=== PATIENT | male | born 1965 | race American Indian/Alaskan Native ===

== ENCOUNTER 2022-02-03 21:22 | Inpatient (IN) | payer OTHER ==
[~2022-02-03] VITALS: Ht 167.6 cm; Wt 80.0 kg
[2022-02-03 21:48] LABS: BASOPHILS ABSOLUTE AUTO 0.12 K/mm3 (0.00-0.23); BASOPHILS PERCENT AUTO 1 % (0-2); EOSINOPHILS PERCENT AUTO 2 % (0-6); Hematocrit 30.5 % (37.0-53.0); Hemoglobin 10.2 g/dL (13.5-17.5); IMMATURE GRAN ABSOLUTE AUTO 0.09 K/mm3 (0.00-0.10); IMMATURE GRAN PERCENT AUTO 1 % (0-1); LYMPHOCYTES ABSOLUTE AUTO 2.84 K/mm3 (0.84-5.20); LYMPHOCYTES PERCENT AUTO 27 % (21-46); MONOCYTES ABSOLUTE AUTO 1.49 K/mm3 (0.16-1.47); MONOCYTES PERCENT AUTO 14 % (4-13); Mean Corpuscular HGB 31.6 pg (26.0-34.0); Mean Corpuscular HGB Conc 33.4 g/dL (31.5-36.5); Mean Corpuscular Volume 94 fL (80-100); Mean Platelet Volume 9.9 fL (9.1-12.4); NEUTROPHILS ABSOLUTE AUTO 5.75 K/mm3 (1.96-9.15); NEUTROPHILS PERCENT AUTO 55 % (41-73); Platelet Count 129 K/mm3 (150-400); RDW Coefficient Variation 15.4 % (11.7-14.2); RDW Standard Deviation 52.9 fL (35.1-46.3); Red Blood Cell Count 3.23 M/mm3 (4.30-5.90); White Blood Cell Count 10.49 K/mm3 (4.00-11.30)
[2022-02-03 22:08] LABS: Alanine Aminotransfer (ALT/SGP 40 U/L (12-78); Albumin/Globulin Ratio 0.4 (0.8-1.8); Alk Phos 106 U/L (50-136); Anion Gap 9 mmol/L (6-16); Aspartate Aminotrans (AST/SGOT 54 U/L (12-37); Bilirubin, Total 2.2 mg/dL (0.1-1.0); Blood Urea Nitrogen 19 mg/dL (8-24); CO2, Blood 21 mmol/L (21-32); Calcium, Blood 8.2 mg/dL (8.5-10.1); Chloride, Blood 110 mmol/L (98-108); Creatinine, Blood 1.12 mg/dL (0.60-1.20); Globulin, Blood 4.5 g/dL (2.2-4.0); Glomerular Filtration Rate >60 (60-); Glucose, Blood 111 mg/dL (70-99); Potassium, Blood 3.5 mmol/L (3.5-5.5); Sodium, Blood 140 mmol/L (136-145); Total Protein, Blood 6.5 g/dL (6.4-8.2)
[2022-02-03 23:20] LABS: International Normalized Ratio 1.26
[2022-02-04] MEDS ORDERED: Norco 7.5-3251 EACH PO (00:10)
[2022-02-04] MEDS ORDERED: SILDENAFIL CIT100 MG PO (00:10)
[2022-02-04] MEDS ORDERED: LOSARTAN POTASS25 M2 PO (00:10)
[2022-02-04] MEDS ORDERED: ENBREL50 MG/1 M2 SC (00:10)
[2022-02-04] MEDS ORDERED: BENADRYL25 M1 PO (00:10)
[2022-02-04] MEDS ORDERED: KLOR-CON M1010 MEQ PO (00:10)
[2022-02-04] MEDS ORDERED: OTEZLA30 MG PO (00:10)
[2022-02-04] MEDS ORDERED: cholecalciferol (vit (00:11)
[2022-02-04] MEDS ORDERED: IBU800 M1 PO (00:11)
[2022-02-04] MEDS ORDERED: OMEP20ER PO (00:12)
[2022-02-04 00:34] LABS: Hematocrit 23.6 % (37.0-53.0); Hemoglobin 8.2 g/dL (13.5-17.5)
[2022-02-04 06:00] LABS: Hematocrit 24.6 % (37.0-53.0); Hemoglobin 8.1 g/dL (13.5-17.5)
[2022-02-04 06:19] LABS: Anion Gap 7 mmol/L (6-16); Blood Urea Nitrogen 17 mg/dL (8-24); Bun/Creatinine Ratio 16.5 (12.0-20.0); CO2, Blood 21 mmol/L (21-32); Calcium, Blood 7.4 mg/dL (8.5-10.1); Chloride, Blood 115 mmol/L (98-108); Creatinine, Blood 1.03 mg/dL (0.60-1.20); Glomerular Filtration Rate >60 (60-); Glucose, Blood 79 mg/dL (70-99); Potassium, Blood 3.2 mmol/L (3.5-5.5); Sodium, Blood 143 mmol/L (136-145)
--- NOTE | 2022-02-04 06:28 | NUR ---
SHIFT SUMMARY. PT RESTED IN BED SINCE ADMISSION. ALERT AND ORIENTED, ON ROOM AIR. IV ACCESS IN L AND R ARM. IV PUMPS RUNNING PROTONIX AT 10 ML/HR, NS AT 150 ML/HR. VS STABLE THROUGHOUT SHIFT, SEE ASSESSMENT FOR FURTHER DETAILS. WILL CONTINUE TO MONITOR AND REPORT OFF TO DAYSHIFT RN.
--- NOTE | 2022-02-04 07:30 | NUR ---
ASSUMED CARE: REPORT RECEIVED FROM UMAIR Saravia RN. ASSUMED CARE OF THIS PT AT APPROX 0700. ON ASSESSMENT, THE PT IS RESTING QUIETLY & AWAKENS EASILY TO VERBAL STIMULUS. HE IS ALERT/ ORIENTED TO ALL, DENIES PAIN, MAEW. COMPLETES CARE INDEPENDENTLY W/ SETUP ASSIST PRN. LS ARE CLEAR T/O, PT ON RA W/ O2 SATS > 95%. MONITOR SHOWS SR-ST W/ HR 90-100s, BP STABLE. THE PT IS CURRENTLY NPO, STS HAVING INTERMITTENT NAUSEA. NO BM OR FURTHER EMESIS SINCE ARRIVAL TO HOSPITAL. VOIDS URINE USING URINAL W/O DIFFICULTY. SKIN CONDITON OVERALL INTACT, SKIN SURFACE COVERED W/ PSORIASIS RASH THAT PT STS IS CHRONIC. PT REPOSITIONS HIMSELF IN BED FOR COMFORT. WILL CONTINUE TO MONITOR & UPDATE NEEDED.
[2022-02-04 08:06] LABS: Hemoglobin 8.4 g/dL (13.5-17.5)
--- NOTE | 2022-02-04 09:10 | NUR ---
DR LYNNE: PROVIDER AT BEDSIDE TO EVAL PT THIS AM. BECAUSE THERE IS NO GI COVERAGE HE WOULD LIKE TO HAVE AN ABDOMINAL ULTRASOUND COMPLETED FOR THIS PT TO CHECK FOR LIVER CIRRHOSIS. CONTINUE TO TREND SERIAL H&H LEVELS Q6H. VITAMIN K & KCL REPLETION ORDERED WELL.
--- NOTE | 2022-02-04 11:36 | NUR ---
Spiritual Care Responding to a Pt. SPiritual CAre request. Pt. is awake in Bed and welcomes my visit. Pt. is very pleasant. Faciliated a review of what brought him to hospital. Pt. is unsettled about the source of his bleeding, but is thankful that his kidneys are not the source of the problem. Pt. is a man of alexandra and displays evidence of hope. Pryaed with Pt. Pt. verbalized gratitude for the spiritual care visit.
[2022-02-04 12:35] LABS: Hematocrit 23.7 % (37.0-53.0)
--- NOTE | 2022-02-04 18:10 | NUR ---
SHIFT SUMMARY: NO ACUTE CHANGES SINCE PRIOR UPDATES. PT REMAINS A&O, PLEASANT & COOPERATIVE W/ CARE. HE HAS RESTED WELL AT TIMES DURING THIS SHIFT & IS CURRENTLY AWAKE, W/ HIS GIRLFRIEND, SARIAH, AT BEDSIDE. LS REMAIN CLEAR T/O, PT ON RA W/ O2 SATS > 95%. MONITOR SHOWS SR-ST, HR 90-110s, BP STABLE. THE PT HAS INTERMITTENT C/O NAUSEA THIS SHIFT BUT HAS DENIED NEED FOR ANTIEMETIC. HE IS TOLERATING PO INTAKE WELL W/ NO NOTABLE INCREASE TO NAUSEA. NO BM OR EPISODES OF EMESIS THIS SHIFT. VOIDS URINE W/O DIFFICULTY USING URINAL. SKIN CONDITION OVERALL INTACT, PSORIATIC RASH PRESENT T/O SKIN SURFACE. PT REPOSITIONS SELF W/O DIFFICULTY PRN FOR COMFORT. WILL CONTINUE TO MONITOR & REPORT OFF TO ONCOMING RN.
[2022-02-04 18:15] LABS: Hematocrit 22.8 % (37.0-53.0); Hemoglobin 7.6 g/dL (13.5-17.5)
--- NOTE | 2022-02-04 19:05 | NUR ---
ASSUMED CARE. REPORT RECEIVED FROM DANIEL OSHEA. PT RESTING IN BED, GIRLFRIEND AT BEDSIDE. PT ALERT AND ORIENTED, ON ROOM AIR. PROTONIX RUNNING AT 10 ML/HR, NS AT 150 ML/HR. VS STABLE, NO ACUTE NEEDS ATT. WILL CONTINUE TO MONITOR.
[2022-02-05 00:31] LABS: Hemoglobin 7.2 g/dL (13.5-17.5)
[2022-02-05 06:34] LABS: BASOPHILS ABSOLUTE AUTO 0.03 K/mm3 (0.00-0.23); BASOPHILS PERCENT AUTO 1 % (0-2); EOSINOPHILS ABSOLUTE AUTO 0.17 K/mm3 (0.00-0.68); EOSINOPHILS PERCENT AUTO 4 % (0-6); Hematocrit 20.6 % (37.0-53.0); Hemoglobin 6.9 g/dL (13.5-17.5); IMMATURE GRAN ABSOLUTE AUTO 0.03 K/mm3 (0.00-0.10); IMMATURE GRAN PERCENT AUTO 1 % (0-1); LYMPHOCYTES ABSOLUTE AUTO 0.99 K/mm3 (0.84-5.20); LYMPHOCYTES PERCENT AUTO 21 % (21-46); MONOCYTES ABSOLUTE AUTO 0.55 K/mm3 (0.16-1.47); MONOCYTES PERCENT AUTO 12 % (4-13); Mean Corpuscular HGB 32.2 pg (26.0-34.0); Mean Corpuscular HGB Conc 33.5 g/dL (31.5-36.5); Mean Corpuscular Volume 96 fL (80-100); Mean Platelet Volume 9.6 fL (9.1-12.4); NEUTROPHILS ABSOLUTE AUTO 2.86 K/mm3 (1.96-9.15); NEUTROPHILS PERCENT AUTO 62 % (41-73); Platelet Count 75 K/mm3 (150-400); RDW Coefficient Variation 15.7 % (11.7-14.2); RDW Standard Deviation 53.7 fL (35.1-46.3); Red Blood Cell Count 2.14 M/mm3 (4.30-5.90); White Blood Cell Count 4.63 K/mm3 (4.00-11.30)
--- NOTE | 2022-02-05 06:40 | NUR ---
SHIFT SUMMARY. PT RESTED IN BED THROUGHOUT SHIFT. ALERT AND ORIENTED, ON ROOM AIR. PG IN PLACE, JAMILA. PROTONIX RUNNING AT 10 ML/HR. PT STATUS CHANGED TO PCU PER DR. CRAIG. VS STABLE THROUGHOUT SHIFT, SEE SHIFT ASSESSMENT FOR FURTHER DETAILS. WILL CONTINUE TO MONITOR AND REPORT OFF TO DAYSHIFT RN.
[2022-02-05 06:57] LABS: Alanine Aminotransfer (ALT/SGP 35 U/L (12-78); Albumin, Blood 1.8 g/dL (3.4-5.0); Albumin/Globulin Ratio 0.5 (0.8-1.8); Alk Phos 79 U/L (50-136); Anion Gap 4 mmol/L (6-16); Aspartate Aminotrans (AST/SGOT 58 U/L (12-37); Bilirubin, Total 1.7 mg/dL (0.1-1.0); Blood Urea Nitrogen 11 mg/dL (8-24); Bun/Creatinine Ratio 11.1 (12.0-20.0); CO2, Blood 20 mmol/L (21-32); Calcium, Blood 7.1 mg/dL (8.5-10.1); Chloride, Blood 118 mmol/L (98-108); Creatinine, Blood 0.99 mg/dL (0.60-1.20); Globulin, Blood 3.4 g/dL (2.2-4.0); Glomerular Filtration Rate >60 (60-); Glucose, Blood 85 mg/dL (70-99); Magnesium, Blood 1.7 mg/dL (1.6-2.4); Potassium, Blood 3.7 mmol/L (3.5-5.5); Sodium, Blood 142 mmol/L (136-145); Total Protein, Blood 5.2 g/dL (6.4-8.2)
[2022-02-05 13:20] LABS: Hemoglobin 8.3 g/dL (13.5-17.5)
--- NOTE | 2022-02-05 14:02 | NUR ---
UPDATE PT PCU STATUS. A&O X4. VSS. SPO2 > 92% ON RA. MONITOR SHOWS SR-ST, HR 90's-110. PT DENYING PAIN/DISCOMFORT, N/V THIS SHIFT SO FAR. NO SIGNS OF BLEEDING. 1 UNIT PRBC's INFUSED PER MD ORDER FOR HGB OF 6.9, PT TOLERATED WELL. PROTONIX GTT INFUSING PER ORDERS. WILL CONTINUE TO MONITOR & PROVIDE CARE.
--- NOTE | 2022-02-05 18:04 | NUR ---
SHIFT SUMMARY PT REMAINS PCU STATUS IN ICU. A&O X4. VSS. SPO2 > 92% ON RA. MONITOR SHOWING SR-ST, HR 90's-110. PT W/ DENIAL OF PAIN/DISCOMFORT, N/V THIS SHIFT W/ ONLY COMPLAINT BEING ITCHING OF PSORIASIS. MD TERAN W/ ORDER FOR PT HOME PSORIASIS MEDICATION USE, SEE EMAR. PT W/ PROTONIX GTT & OCTREOTIDE GTT INFUSING PER ORDERS. PT W/ 1 UNIT OF PRBC's TRANSFUSED THIS SHIFT. PT W/ NO SIGNS OF BLEEDING THIS SHIFT. PT TOLERATING CLEAR LIQUID DIET. WILL CONTINUE TO MONITOR & PROVIDE CARE UNTIL REPORT OFF TO ENVELOPE MAKER RN.
[2022-02-05 18:29] LABS: Hematocrit 26.1 % (37.0-53.0); Hemoglobin 8.9 g/dL (13.5-17.5)
[2022-02-06 03:49] LABS: Hematocrit 24.2 % (37.0-53.0); Hemoglobin 8.2 g/dL (13.5-17.5); Mean Corpuscular HGB 32.2 pg (26.0-34.0); Mean Corpuscular HGB Conc 33.9 g/dL (31.5-36.5); Mean Corpuscular Volume 95 fL (80-100); Mean Platelet Volume 9.9 fL (9.1-12.4); Platelet Count 79 K/mm3 (150-400); RDW Standard Deviation 50.6 fL (35.1-46.3); Red Blood Cell Count 2.55 M/mm3 (4.30-5.90); White Blood Cell Count 3.91 K/mm3 (4.00-11.30)
[2022-02-06 04:10] LABS: Alanine Aminotransfer (ALT/SGP 58 U/L (12-78); Albumin/Globulin Ratio 0.5 (0.8-1.8); Alk Phos 91 U/L (50-136); Anion Gap 7 mmol/L (6-16); Aspartate Aminotrans (AST/SGOT 105 U/L (12-37); Bilirubin, Total 1.9 mg/dL (0.1-1.0); Blood Urea Nitrogen 8 mg/dL (8-24); Bun/Creatinine Ratio 7.5 (12.0-20.0); CO2, Blood 21 mmol/L (21-32); Calcium, Blood 7.5 mg/dL (8.5-10.1); Chloride, Blood 112 mmol/L (98-108); Creatinine, Blood 1.07 mg/dL (0.60-1.20); Globulin, Blood 3.7 g/dL (2.2-4.0); Glomerular Filtration Rate >60 (60-); Glucose, Blood 131 mg/dL (70-99); Potassium, Blood 3.8 mmol/L (3.5-5.5); Sodium, Blood 140 mmol/L (136-145); Total Protein, Blood 5.7 g/dL (6.4-8.2)
[2022-02-06 04:13] LABS: International Normalized Ratio 1.19; Prothrombin Time Results 12.4 Sec (9.7-11.5)
--- NOTE | 2022-02-06 05:53 | NUR ---
PT WAS ABLE TO REST COMFORTABLY THROUGHOUT MOST OF THE NIGHT, USES URINAL INDEPENDENTLY, ABLE TO REPOSITION SELF IN BED. NO EPISODES OF EMESIS OR STOOL. DENIED NAUSEA AND PAIN. IV OCTREOTIDE & PANTOPRAZOLE INFUSING ORDERED. 02/06 03:30 HEMOGLOBIN AND HEMATOCRIT 8.2 AND 24.2, RESPECTIVELY. TRENDING DOWN FROM 8.9 AND 26.1 ON 02/05/22. NO VISIBLE SIGNS OF BLEEDING OVERNIGHT.
--- NOTE | 2022-02-06 08:58 | NUR ---
ASSUMED CARE REPORT FROM BART OSHEA AT 0700. PT RESTING IN BED. WAKES c VERBAL STIMULI. DENIES N/V, ABD PAIN OR OTHER COMPLAINTS. REPORTS NO BM SINCE ADMISSION. NEURO WNL. ST ON MONITOR. BP STABLE. PT P/W/D. LUNGS CLEAR. ON RA. ABD ROUND, SOFT, NON TENDER. BT X 4. TOLERATING CLEAR LIQUID DIET WELL. PROTONIX AND OCTREOTIDE GTT INFUSING ORDERED. PT INDEPENDENT IN ROOM. PT HAS HX OF PSORIASIS c PLAQUES OVER ENTIRE BODY. DR TERAN ROUNDED. CONTINUE TO WAIT FOR TRANSFER FOR GI. PT STATUS CHANGED TO MED c TELE. WILL CONTINUE TO MONITOR.
--- NOTE | 2022-02-06 17:46 | NUR ---
SHIFT SUMMARY/TRANSFER TO MEDICAL FLOOR NO ACUTE CHANGES THIS SHIFT. ASSESSMENT REMAINS UNCHANGED. STATUS CHANGED TO MED c TELE. CONTINUES TO WAIT FOR TRANSFER FOR GI CONSULT. TOLERATING CLEAR LIQUID DIET WELL. NO BM, N/V, OR ABD PAIN. VSS. PROTONIX AND OCTREOTIDE GTT CONTINUE. WILL CONTINUE TO MONITOR UNTIL TRANSFER TO MEDICAL FLOOR.
--- NOTE | 2022-02-06 19:36 | NUR ---
1630: LATE ENTRY RECEIVED REPORT FROM LILLIE MANAGER CARE MANAGEMENT. RECEIVED PT TO 330 VIA W/C TRANSFER. AMBULATED TO BED FROM W/C. MADE PT COMFORTABLE AND ORIENTED TO ROOM AND UNIT ROUTINE. ATTEMPTING TO RE-START HIS MEDICATION IV DRIPS, HIS POWER GLIDE IV IN HIS L UPPER ARM WOULD NOT FLUSH. ATTEMPT TO SAVE HIS POWER GLIDE WAS UNSUCCESSFUL. DC'D WITH CATH INTACT. ON COMING SHIFT WAS NOTIFIED OF NEED TO START AN IV.
--- NOTE | 2022-02-06 19:41 | NUR ---
SHIFT SUMMARY PT HAS REMAINED A&OX3 AND HAS BEEN ASKING FOR HELP WHEN NEEDING TO GET OUT OF BED. SHE HAD 3-4 LARGE LOOSE BM'S TODAY. HELD HER LACTULOSE TODAY. VSS THROUGHOUT SHIFT.
--- NOTE | 2022-02-07 03:40 | NUR ---
SHIFT SUMMARY PT ON PROTONIX 10ML/HR AND SANDOSTATIN 25ML/HR CONTINUOUS INFUSIONS. PT'S POWERGLIDE STOPPED WORKING RIGHT BEFORE HIGH RIGGER AND NIGHT CHARGE DAYO PANDEY PUT ANOTHER IV IN THE L AC. PT PLEASANT AND COOPERATIVE WITH CARE. AWAITING TRANSFER TO ANOTHER FACILITY THAT HAS A GI SPECIALIST. NO N/V/D AT THIS TIME. PT ON TELE. CALL LIGHT IS WITHIN HIS REACH AND I WILL CONTINUE TO MONITOR HIM.
[2022-02-07 08:25] LABS: Hemoglobin 7.9 g/dL (13.5-17.5)
[2022-02-07 15:20] LABS: Influenza A, PCR NEGATIVE (NEGATIVE); Influenza B, PCR NEGATIVE (NEGATIVE); Resp Syncytial Virus, PCR NEGATIVE (NEGATIVE); SARS-Cov-2 (COVID-19) PCR, MMC NEGATIVE (NEGATIVE)
--- NOTE | 2022-02-07 18:23 | NUR ---
SHIFT SUMMARY; PATIENT HAD UNEVENTFUL DAY. [facility] HAS DECIDED NOT TO ACCEPT THIS PATIENT PER PATIENT WILL BE DISCHARGED TOMORROW. PATIENT IS WANTING TO GO HOME. HE DENIES ANY PAIN OR DISCOMFORT TODAY. IV OCTEOTRIDE INFUSING.
[2022-02-08 04:46] LABS: Hematocrit 25.3 % (37.0-53.0); Hemoglobin 8.5 g/dL (13.5-17.5); Mean Corpuscular HGB 32.4 pg (26.0-34.0); Mean Corpuscular HGB Conc 33.6 g/dL (31.5-36.5); Mean Corpuscular Volume 97 fL (80-100); Mean Platelet Volume 9.7 fL (9.1-12.4); Platelet Count 103 K/mm3 (150-400); RDW Coefficient Variation 15.9 % (11.7-14.2); RDW Standard Deviation 51.8 fL (35.1-46.3); Red Blood Cell Count 2.62 M/mm3 (4.30-5.90); White Blood Cell Count 5.88 K/mm3 (4.00-11.30)
--- NOTE | 2022-02-08 05:53 | NUR ---
SHIFT SUMMARY A/O X4 AND IND IN ROOM. VITAL SIGNS STABLE. TOLERATING CLEAR LIQ DIET, NO STOOLS OVER NIGHT. NO N/V REPORTED. NO ACUTE CHANGES THIS SHIFT. WILL CONTINUE TO MONITOR AND REPORT TO ONCOMING RN.
[2022-02-08] MEDS ORDERED: CEFD300 PO (15:11)
--- NOTE | 2022-02-08 15:46 | NUR ---
DISCHARGE INSTRUCTIONS, PRESCIPTIONS AND FOLLOW UP CARE GONE OVER WITH PT. PT'S PCP NOT IN OUR SYSTEM. PT AWARE THEY NEED TO CONTACT AND SCHEDULE FOLLOW UP APPOINTMENTS. BELONGINGS GATHERED AND WITH PT. PT ESCORTED OUT BY FAMILY AND [facility].
== END 2022-02-08 15:55 | disposition home or self-care (01) | DRG 378 ==
LOC: ER 21:22 → ICUE 02-04 00:02 → ICUW 02-04 00:02 → ICUE 02-04 00:40 → MEDS 02-06 18:35 → ENPENDDIS 02-08 14:38 → MEDS 02-08 15:55
PROVIDERS: Emergency Medicine; Internal Medicine; ADMIT Internal Medicine
PROC: HZ2ZZZZ Detoxification Services for Substance Abuse Treatment (ICD-10-PCS; principal; 2022-02-04)
PROC: 30233N1 Transfusion of Nonautologous Red Blood Cells into Peripheral Vein, Percutaneous Approach (ICD-10-PCS; 2022-02-04)
DX: K92.0 Hematemesis (principal); D62 Acute posthemorrhagic anemia; Z20.822 Contact with and (suspected) exposure to COVID-19; L40.50 Arthropathic psoriasis, unspecified; D69.6 Thrombocytopenia, unspecified; F43.21 Adjustment disorder with depressed mood; Z87.891 Personal history of nicotine dependence; Z72.89 Other problems related to lifestyle; Z71.41 Alcohol abuse counseling and surveillance of alcoholic
CPT/HCPCS: 0241U; 36415; 36430; 76700; 80048; 80053; 82272; 83735; 85014; 85018; 85025; 85027; 85610; 86850; 86900; 86901; 86923; 93005; 93010; 96365; 96366; 96375; 99285-25; C1751; C9113; G0480; J0696; J2354; J3411; J3430; J3475; J3480; J7030; J7040; J7042; J7050; P9016

== ENCOUNTER 2023-08-10 16:49 | Emergency (ER) | payer OTHER ==
[~2023-08-10] VITALS: Ht 170.2 cm; Wt 77.1 kg
[~2023-08-10 16:49] MED LIST: BENADRYL25 M1 PO; CEFD300 PO; ENBREL50 MG/1 M2 SC; IBU800 M1 PO; KLOR-CON M1010 MEQ PO; LOSARTAN POTASS25 M2 PO; Norco 7.5-3251 EACH PO; OMEP20ER PO; OTEZLA30 MG PO; SILDENAFIL CIT100 MG PO; cholecalciferol (vit
[2023-08-10 17:20] LABS: BASOPHILS PERCENT AUTO 1 % (0-2); EOSINOPHILS ABSOLUTE AUTO 0.11 K/mm3 (0.00-0.68); EOSINOPHILS PERCENT AUTO 2 % (0-6); Hematocrit 29.9 % (37.0-53.0); Hemoglobin 9.7 g/dL (13.5-17.5); IMMATURE GRAN ABSOLUTE AUTO 0.02 K/mm3 (0.00-0.10); IMMATURE GRAN PERCENT AUTO 0 % (0-1); LYMPHOCYTES ABSOLUTE AUTO 1.91 K/mm3 (0.84-5.20); LYMPHOCYTES PERCENT AUTO 28 % (21-46); MONOCYTES ABSOLUTE AUTO 1.03 K/mm3 (0.16-1.47); MONOCYTES PERCENT AUTO 15 % (4-13); Mean Corpuscular HGB 29.6 pg (26.0-34.0); Mean Corpuscular HGB Conc 32.4 g/dL (31.5-36.5); Mean Corpuscular Volume 91 fL (80-100); Mean Platelet Volume 9.6 fL (9.1-12.4); NEUTROPHILS ABSOLUTE AUTO 3.75 K/mm3 (1.96-9.15); NEUTROPHILS PERCENT AUTO 54 % (41-73); Platelet Count 162 K/mm3 (150-400); RDW Coefficient Variation 15.8 % (11.7-14.2); RDW Standard Deviation 52.6 fL (35.1-46.3); Red Blood Cell Count 3.28 M/mm3 (4.30-5.90); White Blood Cell Count 6.92 K/mm3 (4.00-11.30)
[2023-08-10 18:06] LABS: Albumin, Blood 1.9 g/dL (3.4-5.0); Albumin/Globulin Ratio 0.3 (0.8-1.8); Bilirubin, Total 1.2 mg/dL (0.1-1.0); Bun/Creatinine Ratio 31.1 (12.0-20.0); Creatinine, Blood 1.06 mg/dL (0.60-1.20); Globulin, Blood 7.4 g/dL (2.2-4.0); Potassium, Blood 4.2 mmol/L (3.5-5.5); Total Protein, Blood 9.3 g/dL (6.4-8.2)
[2023-08-10 20:09] LABS: International Normalized Ratio 1.15
[2023-08-11 00:30] VITALS: BP 111/75
== END 2023-08-11 00:56 | disposition short-term general hospital (02) ==
LOC: ER 16:49
PROVIDERS: Emergency Medicine
DX: D64.9 Anemia, unspecified (principal); M06.9 Rheumatoid arthritis, unspecified
CPT/HCPCS: 80053; 85025; 85610; 85730; 86850; 86900; 86901; 96365; 96366; 96367; 96368; 96375; 96376; 99285-25; C9113; J0696; J2354; J2405; J2765; J3010; J7050

== ENCOUNTER 2024-02-18 20:18 | Emergency (ER) | payer OTHER ==
[~2024-02-18] VITALS: Ht 170.2 cm; Wt 76.7 kg
[2024-02-18 20:45] VITALS: BP 132/81
[2024-02-18 22:12] LABS: BASOPHILS ABSOLUTE AUTO 0.04 K/mm3 (0.00-0.23); BASOPHILS PERCENT AUTO 1 % (0-2); EOSINOPHILS ABSOLUTE AUTO 0.14 K/mm3 (0.00-0.68); EOSINOPHILS PERCENT AUTO 3 % (0-6); Hematocrit 35.7 % (37.0-53.0); Hemoglobin 12.5 g/dL (13.5-17.5); IMMATURE GRAN ABSOLUTE AUTO 0.02 K/mm3 (0.00-0.10); IMMATURE GRAN PERCENT AUTO 0 % (0-1); LYMPHOCYTES ABSOLUTE AUTO 0.97 K/mm3 (0.84-5.20); LYMPHOCYTES PERCENT AUTO 21 % (21-46); MONOCYTES ABSOLUTE AUTO 0.75 K/mm3 (0.16-1.47); MONOCYTES PERCENT AUTO 17 % (4-13); Mean Corpuscular HGB 30.9 pg (26.0-34.0); Mean Corpuscular Volume 88 fL (80-100); Mean Platelet Volume 8.8 fL (9.1-12.4); NEUTROPHILS ABSOLUTE AUTO 2.63 K/mm3 (1.96-9.15); NEUTROPHILS PERCENT AUTO 58 % (41-73); Platelet Count 156 K/mm3 (150-400); RDW Coefficient Variation 14.3 % (11.7-14.2); RDW Standard Deviation 45.8 fL (35.1-46.3); Red Blood Cell Count 4.04 M/mm3 (4.30-5.90); White Blood Cell Count 4.55 K/mm3 (4.00-11.30)
[2024-02-18 22:36] LABS: C-REACTIVE PROTEIN, EXT RANGE 5.14 mg/dL (0.000-0.300)
[2024-02-18 22:37] LABS: Albumin/Globulin Ratio 0.3 (0.8-1.8); Bilirubin, Total 1.2 mg/dL (0.1-1.0); Bun/Creatinine Ratio 8.9 (12.0-20.0); Creatinine, Blood 1.23 mg/dL (0.60-1.20); Globulin, Blood 6.2 g/dL (2.2-4.0); Potassium, Blood 3.4 mmol/L (3.5-5.5); Total Protein, Blood 8.2 g/dL (6.4-8.2)
== END 2024-02-18 22:51 | disposition home or self-care (01) ==
LOC: ER 20:18
PROVIDERS: Physician Assistant
DX: M25.462 Effusion, left knee (principal); Z79.899 Other long term (current) drug therapy
CPT/HCPCS: 36415; 73562-LT; 80053; 85025; 86140; 99283-25